=== PATIENT | female | born 1990 | race Caucasian/White ===

== ENCOUNTER 2016-10-24 08:00 | Outpatient (CLI) | payer OTHER | END 2016-10-24 08:01 | disposition home or self-care (01) | LOC: LAB.R 08:00 | PROVIDERS: ATTEND Obstetrics & Gynecology | DX: Z11.3 Encounter for screening for infections with a predominantly sexual mode of transmission (principal) | CPT/HCPCS: 87491; 87591 ==

== ENCOUNTER 2016-11-06 09:45 | Outpatient (CLI) | payer OTHER ==
[2016-11-06 12:38] LABS: BILIRUBIN,URINE NEGATIVE (NEGATIVE); PH,URINE 6.5 PH (5.0-7.5)
[2016-11-06 12:41] LABS: BASOPHILS % (AUTO) 0.4 %; EOSINOPHILS % (AUTO) 0.5 %; HCT - HEMATOCRIT 38.2 % (37.0-47.0); HGB - HEMOGLOBIN 13.2 g/dL (12.0-16.0); LYMPHOCYTES # (AUTO) 1.6 10^3/uL (1.5-3.5); LYMPHOCYTES % (AUTO) 19.3 %; MEAN CORPUSCULAR HEMOGLOBIN 30.4 pg (27.0-31.0); MEAN CORPUSCULAR HGB CONC 34.6 g/dL (32.0-36.0); MEAN CORPUSCULAR VOLUME 87.9 fL (81.0-99.0); MEAN PLATELET VOLUME 9.5 fL (7.9-10.8); MONOCYTES # (AUTO) 0.4 10^3/uL (0.0-1.0); MONOCYTES % (AUTO) 5.4 %; NEUTROPHILS # (AUTO) 6.1 10^3/uL (1.5-6.6); NEUTROPHILS % (AUTO) 74.4 %; NUCLEATED RED BLOOD CELLS AUTO 0.1 /100WBC; RED BLOOD COUNT 4.34 10^6/uL (4.20-5.40); RED CELL DISTRIBUTION WIDTH 13.4 % (12.0-15.0); UNCORRECTED WHITE BLOOD COUNT 8.3 x10^3/uL; WHITE BLOOD COUNT 8.3 x10^3/uL (4.8-10.8)
[2016-11-06 13:26] LABS: WBC,URINE 0-3 /HPF (0-5)
[2016-11-07 10:51] LABS: TEST RESULT REPORT (())
== END 2016-11-06 09:46 | disposition home or self-care (01) ==
LOC: LAB.N 09:45
PROVIDERS: ATTEND Obstetrics & Gynecology
DX: Z36 Encounter for antenatal screening of mother (principal)
CPT/HCPCS: 36415; 81001; 81599; 85025; 86762; 86850; 86900; 86901; 87340; 87389

== ENCOUNTER 2016-11-21 16:19 | Emergency (ER) | payer OTHER ==
[2016-11-21 16:37] LABS: BILIRUBIN,URINE NEGATIVE (NEGATIVE)
[2016-11-21 16:41] LABS: HCG UR QUAL POSITIVE; UA w/ MICROSCOPIC CHARGE YES
[2016-11-21 16:55] LABS: WBC,URINE >25 /HPF (0-5)
[2016-11-21 16:56] LABS: UR CULTURE IF IND NOT INDICATED
[2016-11-21] MEDS ORDERED: SODIUM CHLORIDE 0.9% 1,000 ML IV ONE ×3 (18:12→20:23)
[2016-11-21] MEDS ORDERED: HYDROmorphone 1 MG/ML SYRINGE IVP STA ×2 (18:12→18:54)
[2016-11-21] MEDS ORDERED: METOCLOPRAMIDE 10 MG/2 ML VIAL IVP STA ×2 (18:14→18:58)
[2016-11-21 18:19] LABS: BASOPHILS % (AUTO) 0.3 %; EOSINOPHILS % (AUTO) 0.3 %; HCT - HEMATOCRIT 40.8 % (37.0-47.0); HGB - HEMOGLOBIN 13.9 g/dL (12.0-16.0); LYMPHOCYTES # (AUTO) 1.7 10^3/uL (1.5-3.5); LYMPHOCYTES % (AUTO) 10.2 %; MEAN CORPUSCULAR HEMOGLOBIN 30.2 pg (27.0-31.0); MEAN CORPUSCULAR HGB CONC 34.1 g/dL (32.0-36.0); MEAN CORPUSCULAR VOLUME 88.4 fL (81.0-99.0); MEAN PLATELET VOLUME 9.4 fL (7.9-10.8); MONOCYTES # (AUTO) 0.8 10^3/uL (0.0-1.0); MONOCYTES % (AUTO) 4.9 %; NEUTROPHILS # (AUTO) 14.1 10^3/uL (1.5-6.6); NEUTROPHILS % (AUTO) 84.3 %; RED BLOOD COUNT 4.62 10^6/uL (4.20-5.40); RED CELL DISTRIBUTION WIDTH 13.3 % (12.0-15.0); UNCORRECTED WHITE BLOOD COUNT 16.7 x10^3/uL; WHITE BLOOD COUNT 16.7 x10^3/uL (4.8-10.8)
[2016-11-21] MEDS ORDERED: METOCLOPRAMIDE 10 MG/2 ML VIAL ONE ×2 (18:19→19:22)
[2016-11-21] MEDS ORDERED: HYDROmorphone 1 MG/ML SYRINGE ONE ×2 (18:19→19:23)
[2016-11-21] MEDS ORDERED: SODIUM CHLORIDE FLUSH 0.9% 10 ML SYRINGE IVP ONE (18:20)
[2016-11-21 18:30] LABS: ALBUMIN/GLOBULIN RATIO 1.2 (1.0-2.2); BILIRUBIN,TOTAL 0.4 mg/dL (0.2-1.0); CALCIUM 9.1 mg/dL (8.5-10.3); CREATININE 0.7 mg/dL (0.4-1.0); POTASSIUM 2.9 mmol/L (3.5-5.0); TOTAL PROTEIN 7.4 g/dL (6.7-8.2)
--- NOTE | 2016-11-21 18:41 | ED Physician Documentation ---
PD HPI ABD PAIN - Stated complaint Stated Complaint: VOMIT/BACK/SIDE PX - Chief complaint Chief Complaint: Abd Pain - History obtained from History obtained from: Patient - History of Present Illness Timing - onset: How many hours ago (3) Timing - duration: Hours (3) Timing - details: Abrupt onset Pain level max: 10 Pain level now: 10 Quality: Aching, Pain Location: Other (L flank) Radiation: Other (LLQ) Improved by: Other (nothing) Worsened by: Other (nothing) Associated symptoms: Nausea, Vomiting. No: Fever, Hematemesis, Diarrhea, Constipation, Melena, Hematochezia, Dysuria, Hematuria, Chest pain Similar symptoms before: Diagnosis (kidney stones) Recently seen: Not recently seen - Additional information Additional information: 11 weeks EGA, Review of Systems Ten Systems: 10 systems reviewed and negative Constitutional: denies: Fever, Chills Ears: denies: Ear pain Nose: denies: Rhinorrhea / runny nose, Congestion Respiratory: denies: Cough GI: reports: Nausea, Vomiting : reports: Now EGA (11 weeks). denies: Dysuria, Frequency, Hesitancy Skin: denies: Rash Musculoskeletal: denies: Neck pain, Back pain PD PAST MEDICAL HISTORY - Past Medical History Cardiovascular: None Respiratory: None Neuro: None Endocrine/Autoimmune: None GI: None : Kidney stones HEENT: None Psych: None Musculoskeletal: Other Derm: None - Past Surgical History Past Surgical History: Yes Ortho: Other - Present Medications Home Medications: Ambulatory Orders Medication Instructions Recorded Confirmed Pnv No.122/Iron/Folic Acid 1 each PO DAILY 06/13/15 11/21/16 [ Multi Tablet] - Allergies Allergies/Adverse Reactions: Allergies Allergy/AdvReac Type Severity Reaction Status Date / Time No Known Drug Allergies Allergy Verified 11/21/16 16:25 - Social History Does the pt smoke?: No Smoking Status: Never smoker Does the pt drink ETOH?: No Does the pt have substance abuse?: No - Immunizations Immunizations are current?: Yes PD ED PE NORMAL - Vitals Vital signs reviewed: Yes - General General: Alert and oriented X 3, Other (appears in pain) - HEENT HEENT: Moist mucous membranes - Neck Neck: Supple, no meningeal sign - Cardiac Cardiac: RRR, Strong equal pulses - Respiratory Respiratory: No respiratory distress, Clear bilaterally - Abdomen Abdomen: Soft, Non tender, Non distended - Back Back: No CVA TTP, No spinal TTP - Derm Derm: Warm and dry - Neuro Neuro: Alert and oriented X 3 - Psych Psych: Normal mood, Normal affect Results - Vitals Vitals: Vital Signs - 24 hr 11/21/16 11/21/16 11/21/16 16:22 19:42 19:51 Temperature 36.0 C L 36.0 C L Heart Rate 85 54 L Respiratory 24 14 15 Rate Blood Pressure 124/60 103/66 O2 Saturation 97 100 11/21/16 11/21/16 21:38 22:48 Temperature 36.0 C L 36.0 C L Heart Rate 91 94 Respiratory 15 16 Rate Blood Pressure 100/44 L 101/68 O2 Saturation 100 100 Oxygen O2 Source Room air - Labs Labs: Laboratory Tests 11/21/16 11/21/16 11/21/16 16:25 16:25 18:00 WBC 16.7 H RBC 4.62 Hgb 13.9 Hct 40.8 MCV 88.4 MCH 30.2 MCHC 34.1 RDW 13.3 Plt Count 237 MPV 9.4 Neut # 14.1 H Lymph # 1.7 Starke # 0.8 Eos # 0.0 Baso # 0.0 Absolute Nucleated RBC 0.01 Nucleated RBCs 0.0 Sodium Potassium Chloride Carbon Dioxide Anion Gap BUN Creatinine Estimated GFR (MDRD) Glucose Calcium Total Bilirubin AST ALT Alkaline Phosphatase Total Protein Albumin Globulin Albumin/Globulin Ratio Lipase Urine Color YELLOW Urine Clarity SL. CLOUDY Urine pH 6.0 Ur Specific [place] 1.025 1.025 Urine Protein NEGATIVE Urine Glucose (UA) NEGATIVE Urine Ketones NEGATIVE Urine Occult Blood LARGE H Urine Nitrite NEGATIVE Urine Bilirubin NEGATIVE Urine Urobilinogen 0.2 (NORMAL) Ur Leukocyte Esterase NEGATIVE Urine RBC 0-5 Urine WBC >25 H Ur Squamous Epith Cells MOD Squamous H Urine Bacteria Many H Urine Mucus Few Strands Ur Microscopic Review INDICATED Urine Culture Comments NOT INDICATED Urine HCG, Qual POSITIVE 11/21/16 11/21/16 18:00 19:40 WBC RBC Hgb Hct MCV MCH MCHC RDW Plt Count MPV Neut # Lymph # Starke # Eos # Baso # Absolute Nucleated RBC Nucleated RBCs Sodium 134 L Potassium 2.9 L Chloride 104 Carbon Dioxide 19 L Anion Gap 11.0 BUN 14 Creatinine 0.7 Estimated GFR (MDRD) 101 Glucose 116 H Calcium 9.1 Total Bilirubin 0.4 AST 26 ALT 16 Alkaline Phosphatase 59 Total Protein 7.4 Albumin 4.0 Globulin 3.4 Albumin/Globulin Ratio 1.2 Lipase 36 Urine Color YELLOW Urine Clarity CLEAR Urine pH 6.0 Ur Specific [place] 1.025 Urine Protein TRACE Urine Glucose (UA) NEGATIVE Urine Ketones 15 H Urine Occult Blood MODERATE H Urine Nitrite NEGATIVE Urine Bilirubin NEGATIVE Urine Urobilinogen 0.2 (NORMAL) Ur Leukocyte Esterase NEGATIVE Urine RBC 11-25 H Urine WBC 0-3 Ur Squamous Epith Cells MOD Squamous H Urine Bacteria Rare Urine Mucus Marked Strands Ur Microscopic Review INDICATED Urine Culture Comments NOT INDICATED Urine HCG, Qual PD MEDICAL DECISION MAKING - ED course Complexity details: reviewed results, re-evaluated patient, considered differential, d/w patient, d/w computer systems consultant ED course: Patient is a 26-year-old female who presents to the emergency department with what sounds like a left-sided ureteral stone. Her pain was well controlled in the emergency department, but was still having nausea and vomiting despite Zofran and Reglan, multiple doses. She is able to tolerate a very small amount of water, at this time I discussed the case with our hospitalist, Dr. Parker, who does not feel comfortable admitting this patient for observation for pain control and intractable vomiting, she states that she is concerned about the patient developing ARDS. There is no evidence of respiratory difficulty at this time. No hypoxia. Lungs are clear to auscultation bilaterally. Not septic. No infected stone. A renal ultrasound was performed and the results are pending at the time of signout. Patient is actually feeling much more comfortable at this time. We will try p.o. challenge in her again to see if she improves. If her pain is controlled and she is able to tolerate p.o., will likely be able to go home tonight. If she is unable to tolerate p.o., will need to contact urology for possible transfer. Case was signed out to Dr. Velazquez. This document was made in part using voice recognition software. While efforts are made to proofread this document, sound alike and grammatical errors may occur. Bedside ultrasound reveals an intrauterine with a heart rate of 162 bpm. Positive movement. Images shown to patient and . Departure - Departure Clinical Impression: Ureteral stone Vomiting Qualifiers: Vomiting type: unspecified Vomiting Intractability: intractable Nausea presence : with nausea Qualified Code(s): R11.2 - Nausea with vomiting, unspecified Qualifiers: Weeks of gestation: 11 weeks Qualified Code(s): Z3A.11 - 11 weeks gestation of Condition: Stable
[2016-11-21] MEDS ORDERED: ACETAMINOPHEN 1,000 MG/100 ML 100 ML IV STA (18:58)
[2016-11-21] MEDS ORDERED: ACETAMINOPHEN 1,000 MG/100 ML 100 ML IV ONE (19:23)
[2016-11-21 19:42] LABS: BILIRUBIN,URINE NEGATIVE (NEGATIVE)
[2016-11-21 19:43] LABS: UA w/ MICROSCOPIC CHARGE YES
[2016-11-21 19:51] LABS: UR CULTURE IF IND NOT INDICATED; WBC,URINE 0-3 /HPF (0-5)
[2016-11-21] MEDS ORDERED: DEXAMETHASONE 10 MG/ML VIAL IVP STA (21:02)
[2016-11-21] MEDS ORDERED: ONDANSETRON 4 MG/2 ML VIAL IVP STA (21:04)
[2016-11-21] MEDS ORDERED: DEXAMETHASONE 10 MG/ML VIAL ONE (21:08)
[2016-11-21] MEDS ORDERED: ONDANSETRON 4 MG/2 ML VIAL ONE (21:13)
[2016-11-21] MEDS ORDERED: oxyCOD/ACETAMIN 5 MG/325 MG TABLET PO STA (22:30)
[2016-11-21] MEDS ORDERED: oxyCOD/ACETAMIN 5 MG/325 MG TABLET PO ONE (22:37)
--- NOTE | 2016-11-22 00:52 | Ultrasound Preliminary Report ---
Exam: US Retroperitoneal IMPRESSION: Moderate left hydroureteronephrosis due to an obstructing 10 mm UVJ stone. [facility] SITE ID: [id number]
--- NOTE | 2016-11-22 00:54 | Ultrasound Report ---
EXAM: RENAL ULTRASOUND EXAM DATE: 11/22/2016 12:16 AM. CLINICAL HISTORY: Left sided flank pain, COMPARISON: 11/16/2015 TECHNIQUE: Real-time scanning was performed with static images obtained. FINDINGS: Right Kidney: 11.0 x 5.2 x 4.7 cm. Normal echotexture with no stones, contour-deforming masses, or hy dronephrosis. Left Kidney: 12.9 x 6.7 x 5.6 cm. Normal parenchymal thickness and echogenicity. Moderate to severe h ydronephrosis. Previous Noted intrarenal stone within the kidney could not be identified on this exam . Small amount of perinephric fluid. Bladder: Bilateral jets seen. The prevoid bladder volume was 122 cc. There is a 10 mm calcification s uspected near the left UVJ. Dilated left ureter. IMPRESSION: Moderate left hydroureteronephrosis due to an obstructing 10 mm UVJ stone. [facility] Referring Provider Line: [phone] SITE ID: [id number]
[2016-11-22 02:51] VITALS: BP 97/51
== END 2016-11-22 04:00 | disposition short-term general hospital (02) ==
LOC: ED 16:19
DX: O99.89 Other specified diseases and conditions complicating pregnancy, childbirth and the puerperium (principal); N13.2 Hydronephrosis with renal and ureteral calculous obstruction; O21.0 Mild hyperemesis gravidarum; Z3A.11 11 weeks gestation of pregnancy
CPT/HCPCS: 36415; 76770; 80053; 81001; 81025; 83690; 85025; 96361; 96374; 96375; 96376; 99284; 99285; A9270; J0131; J1170; 81003; 87086